=== PATIENT | female | born 1955 | race Caucasian/White ===

== ENCOUNTER → 2018-01-27 | Outpatient (CLI) | payer BC ==
[~2018-01-27] MED LIST: AMOXICILLIN 50500 MG PO; EYE DROP FOR GLAUCOM; FLEXERIL 1010 MG/TAB PO; LORTAB 5/500 501 TAB PO; MAXIDE; NO HOME MEDICATIONS
== END ==
LOC: MC.RAD 08:11
DX: Z12.31 Encounter for screening mammogram for malignant neoplasm of breast (principal)